=== PATIENT | female | born 1950 | race African-American/Black ===

== ENCOUNTER → 2016-12-30 | Outpatient (CLI) | payer MEDICARE ==
[2015-11-04 05:00] VITALS: BP 175/79
[~2016-12-30] MED LIST: ACET650T10 PO; AMLO5TAB2 PO; ASPI-482 PO; ATOR40TA59 PO; BACL10TA PO; CARV25TA2 PO; CHOL10003 PO; GABA-586 PO; HYDR-2666 PO; INSU100C4 SQ; INSU100I13 SQ; IOHEXOL 180 MG/ML 10 ML VIAL. ONE; ISOS60TA2 PO; LIDO30CR TP; LOSA100T6 PO; NITR0.4T6 SL; OMEG1CAP6 PO; OMEP40CA5 PO; OXYC-244 PO; PREG50CA PO; [UNRECOGNIZED DRUG - OTHER] PO; methylPREDNISolone ACETATE 40 MG/ML VIAL. ONE; methylPREDNISolone ACETATE 80 MG/ML VIAL. ONE
--- NOTE | 2016-12-31 02:25 | PAIN ---
DATE OF SERVICE: DIAGNOSES: Lumbar radiculopathy with lumbar degenerative disk disease. HISTORY OF PRESENT ILLNESS: The patient is a 66-year-old female who returns for followup status post lumbar epidural steroid injections x 3, last seen 10/31/2016. The patient did very well with these with about 75% improvement, but gradually returning now in the low back and left leg as it was previously, but not nearly at the baseline. The patient reports it as aching and dull radiating to the left leg with some burning, stinging pain as well, worse with standing and walking, worse at 8 on a scale of 10. The patient reports it is better with lying down or sleeping. She has still been doing well, only occasionally waking her from sleep, but not every night. The patient reports no new motor or sensory deficits, no new bowel or bladder incontinence or other complaints. The pain radiates to her posterior gluteus, posterior lateral thigh, lateral anterior thigh and lateral medial lower leg as well as in the medial and posterior lower leg as well with walking and standing. PHYSICAL EXAMINATION: VITAL SIGNS: The patient's blood pressure 149/90, pulse 81, respirations 18, temperature is 98.2 degrees Fahrenheit, height is 5 feet 8 inches, and weight is 215 pounds. GENERAL: The patient is awake, alert, oriented, appropriate, very pleasant demeanor. HEENT: Head shows normocephalic and atraumatic. Extraocular movements are intact and symmetrical. Oral cavity, mucous membranes are moist and pink. Dentition is intact. NECK: Shows anterior throat supple without palpable lymphadenopathy noted. Swallow reflex is symmetrical. Neck shows full rotational motion of the cervical spine without difficulty. CHEST: Shows normal on inspection. Breath sounds are clear to auscultation bilaterally. HEART: Shows S1 and S2 clear. No murmurs are auscultated. ABDOMEN: Obese, soft, nontender, and nondistended. No palpable organomegaly is noted. No rebound or guarding demonstrated. BACK: Shows spine grossly midline. Normal appearing lumbar lordotic curvature and thoracic kyphotic curvature. Lumbar paraspinous muscle shows some moderate tenderness with palpation, but only with deep palpation in the lower lumbar distribution bilaterally. It is only diffusely tender without evidence of atrophy or hypertrophy. The patient shows good rotational motion both laterally as well as extension and flexion without difficulty. No tenderness over the sacrum or sacroiliac regions. EXTREMITIES: Lower extremities showed deep tendon reflexes 1+ in the patellar and tendo calcaneus tendons. Motor exam is approximately 4 on a scale of 5 with left dorsiflexion, extension, and 5/5 with quadriceps and hamstring flexion, and 5/5 on the right leg with dorsiflexion, quadriceps and hamstring flexion. Options were discussed with the patient. At this time, the patient's old chart was reviewed and her current medication regimen is updated. Current review of systems is updated today as well. We will proceed with a lumbar epidural steroid injection today is the first in this series. Risks were again discussed including, but not limited to bleeding, infection, possibility of epidural hematoma, subsequent neurologic compromise, dural punctures, headaches, spinal cord and/or nerve damage, side effects of steroid medication and poor results regarding pain control. The patient understands and wishes to proceed. The patient will return to clinic in approximately 2 weeks for followup. She was counseled on return appointment, activity level and side effects to be aware of. DIAGNOSIS: Lumbar radiculopathy with lumbar degenerative disk disease. PROCEDURE: Lumbar epidural steroid injection in translaminar approach at the L4-L5 level using C-arm fluoroscopic guidance under sterile prep and drape, and local anesthetic. MEDICATIONS INJECTED: Depo-Medrol 120 mg plus 10 mL of preservative-free normal saline and 2 mL of Isovue for contrast. CONDITION AT DISCHARGE: Stable. The patient tolerated procedure well, had no complications. DACIA OQUENDO MD DR: VIKAS/luis JOB#: [id number] / [id number]
== END | disposition home or self-care (01) ==
LOC: PNCL 07:47
PROVIDERS: ATTEND Anesthesiology
DX: M51.16 Intervertebral disc disorders with radiculopathy, lumbar region (principal)
CPT/HCPCS: 62323; J1030; J1040

== ENCOUNTER → 2017-02-24 | Outpatient (CLI) | payer MEDICARE ==
[2015-11-04 05:00] VITALS: BP 175/79
--- NOTE | 2017-02-28 08:20 | PAIN ---
DATE OF SERVICE: ADDENDUM PREOPERATIVE DIAGNOSES: Lumbar radiculopathy and lumbar degenerative disk disease. PROCEDURE: Lumbar epidural steroid injection at the L4-L5 site using C-arm fluoroscopic guidance under sterile prep and drape using local anesthetic. MEDICATION INJECTED: 120 mg of Depo-Medrol plus 10 mL of preservative-free normal saline and 2 mL of Isovue for contrast. CONDITION AT DISCHARGE: Stable. The patient tolerated procedure well, had no complications. DACIA OQUENDO MD DR: VIKAS/ulis JOB#: [id number] / [id number]
== END | disposition home or self-care (01) ==
LOC: PNCL 07:25
PROVIDERS: ATTEND Anesthesiology
DX: M51.16 Intervertebral disc disorders with radiculopathy, lumbar region (principal)
CPT/HCPCS: 62323; J1030; J1040

== ENCOUNTER → 2017-04-24 | Outpatient (CLI) | payer MEDICARE ==
[2015-11-04 05:00] VITALS: BP 175/79
[~2017-04-24] MED LIST changes: -HYDR-2666 PO; +HYDR-2758 PO; +NITR0.4T22 SL; -NITR0.4T6 SL; -OXYC-244 PO; +OXYC-327 PO
--- NOTE | 2017-04-25 02:28 | PAIN ---
DATE OF SERVICE: 04/24/2017 DIAGNOSES: Lumbar radiculopathy with lumbar degenerative disk disease. HISTORY OF PRESENT ILLNESS: The patient is a 67-year-old female who returns for followup status post lumbar epidural steroid injections x 2, last seen 02/24/2017. The patient reports that she did fairly well with this about 80% improvement initially, now the pain is returning in the low back and left lower extremity as it was in the anterolateral thigh, medial thigh, posterior thigh and across the low back and to the lower leg medially sometimes. The patient reports it is sharp, burning, constant becoming more noticeable, awaken her from sleep when she lies on her left side. The patient reports it is worst with walking and standing. It is 10 on scale of 10, at its least is 8 on a scale 10 currently. The patient reports no new motor or sensory deficits, no new bowel or bladder incontinence or other complaints. PHYSICAL EXAMINATION: VITAL SIGNS: The patient's blood pressure is 133/74, pulse 74, respirations 18, temperature 97.5 degrees Fahrenheit, height is 5 feet 8 inches, weight is 216 pounds. GENERAL: The patient is awake, alert, oriented, appropriate, very pleasant demeanor. HEENT: Head shows normocephalic, atraumatic. Extraocular movements are intact and symmetrical. Oral cavity: Mucous membranes are moist and pink. NECK: Shows anterior throat supple. CHEST: Shows normal on inspection. Breath sounds are clear to auscultation bilaterally. HEART: Shows S1 and S2 clear. No murmurs auscultated. ABDOMEN: Soft, nontender, nondistended. BACK: Shows spine grossly in midline. Lumbar paraspinous muscle shows some moderate tenderness with palpation, but is symmetrical on inspection without radiation. No tenderness over the sacrum or sacroiliac regions. The patient shows good rotation and motion of the lumbar spine, both laterally as well as extension and flexion without difficulty. EXTREMITIES: Lower extremities showed deep tendon reflexes at 1+/4 bilaterally in the patellar and tendo calcaneus tendons. Motor exam is strong with approximately 4-5 motor strength the left ankle and 5/5 on the right. PLAN: Options were discussed with the patient. At this time, the patient's old chart was reviewed as her current medication regimen updated. Current review of systems updated today as well. We will proceed with a third in the series of lumbar epidural steroid injection with fluoroscopic guidance. Risks were again discussed including, but not limited to bleeding, infection, possibility of epidural hematoma, subsequent neurologic compromise, dural puncture, headaches, spinal cord and/or nerve damage, side effects of steroid medication and poor results regarding pain control. The patient understands and wishes to proceed. The patient will return to clinic in approximately 2 weeks for followup. She was counseled to return appointment, activity level and side effects to be aware of. DIAGNOSIS: Lumbar radiculopathy with lumbar degenerative disk disease. PROCEDURE: Lumbar epidural steroid injection in translaminar approach at the L4-L5 level using C-arm fluoroscopic guidance under sterile prep and drape using local anesthetic. Medication injected is 120 mg Depo-Medrol plus 10 mL of preservative-free normal saline and 2 mL of Isovue for contrast. CONDITION AT DISCHARGE: Stable. The patient tolerated procedure well, had no complications. DACIA OQUENDO MD DR: VIKAS/luis JOB#: [id number] / [id number]
== END | disposition home or self-care (01) ==
LOC: PNCL 07:33
PROVIDERS: ATTEND Anesthesiology
DX: M51.16 Intervertebral disc disorders with radiculopathy, lumbar region (principal); Z88.0 Allergy status to penicillin; Z88.8 Allergy status to other drugs, medicaments and biological substances
CPT/HCPCS: 62323; J1030; J1040

== ENCOUNTER → 2017-06-30 | Outpatient (CLI) | payer MEDICARE ==
[2015-11-04 05:00] VITALS: BP 175/79
--- NOTE | 2017-06-30 09:42 | PAIN ---
DATE OF SERVICE: 06/30/2017 PROGRESS NOTE FOR PAIN CLINIC DIAGNOSIS: Lumbar radiculopathy with lumbar degenerative disk disease. HISTORY OF PRESENT ILLNESS: The patient is a 67-year-old female who returns for followup, status post previous lumbar epidural steroid injection. The patient did very well with this with approximately 80% improvement overall, pain returning now. Her last injection was on April 24, first one in that series was on December 30. The patient did very well, but the pain is returning now in the low back and left lower extremity greater than right. It is an aching, dull, cramping pain. It can be sharp and becoming more constant in the left leg. The patient reports it is a 9 on a scale of 10 at all times, ____. The patient reports it wakes her up from sleep. She sleeps about 3-4 hours at a time, but has to reposition to get comfortable here lately over the past month or so. The patient reports no new motor or sensory deficits, no new bowel or bladder incontinence or other complaints. PHYSICAL EXAMINATION: VITAL SIGNS: Today, the patient's blood pressure is 137/79, pulse is 66, respirations are 18, temperature is 97.8 degrees Fahrenheit, height is 5 feet 8 inches, weight is 222 pounds. GENERAL: The patient is awake, alert, oriented, appropriate, has very pleasant demeanor. HEENT: Head shows normocephalic, atraumatic. Extraocular movements are intact and symmetrical. Oral cavity shows mucous membranes are moist and pink. Dentition is intact. NECK: Shows anterior throat supple without palpable lymphadenopathy noted. Swallow reflex is symmetrical. CHEST: Shows normal on inspection. Breath sounds are clear to auscultation bilaterally. HEART: Shows S1 and S2 clear. ABDOMEN: Obese, soft, nontender, nondistended. No palpable organomegaly is noted. No rebound or guarding demonstrated. BACK: Shows spine grossly midline. Some mild flattening of lumbar lordotic curvature and lumbar paraspinous musculature is symmetrical with palpation shows some mild tenderness with palpation bilaterally, but only diffusely without radiation. EXTREMITIES: Lower extremities show deep tendon reflexes 1+ in the patellar and tendo calcaneus tendons are equal. Motor exam is strong with approximately 4 on a scale of 5 with left dorsiflexion and extension and 5/5 on the right. PLAN: Options were discussed with the patient. The patient's old chart was reviewed as her current medication regimen and updated. Current review of systems updated today as well. We will proceed with the first in the series of lumbar epidural steroid injection with fluoroscopic guidance. Risks were again discussed including, but not limited to bleeding, infection, possibility of epidural hematoma, subsequent neurological compromise, dural puncture, headaches, spinal cord and/or nerve damage, side effects of steroid medication and poor results regarding pain control. The patient understands and wishes to proceed. The patient will return to the clinic in approximately 2 weeks for followup. She was counseled as to return appointment, activity level and side effects to be aware of. DIAGNOSIS: Lumbar radiculopathy with lumbar degenerative disk disease. PROCEDURES: Lumbar epidural steroid injection in translaminar approach at L4-L5 level using C-arm fluoroscopic guidance under sterile prep and drape using local anesthetic. MEDICATIONS INJECTED: A total of 120 mg of Depo-Medrol plus 10 mL of preservative-free normal saline and 2 mL of Isovue for contrast. Condition at discharge is stable. The patient tolerated the procedure well, had no complications. DACIA OQUENDO MD DR: VIKAS/luis JOB#: [id number] / [id number]
== END | disposition home or self-care (01) ==
LOC: PNCL 07:29
PROVIDERS: ATTEND Anesthesiology
DX: M51.16 Intervertebral disc disorders with radiculopathy, lumbar region (principal); Z88.0 Allergy status to penicillin; Z88.8 Allergy status to other drugs, medicaments and biological substances
CPT/HCPCS: 62323; J1030; J1040

== ENCOUNTER → 2017-08-25 | Outpatient (CLI) | payer MEDICARE ==
[2015-11-04 05:00] VITALS: BP 175/79
--- NOTE | 2017-08-25 08:47 | PAIN ---
DATE OF SERVICE: 08/25/2017 DIAGNOSES: Lumbar radiculopathy with lumbar degenerative disk disease. HISTORY OF PRESENT ILLNESS: The patient is a 67-year-old female who returns for followup status post lumbar epidural steroid injection x 1. The patient reports about 70% improvement for the first 3 weeks following the injections. It has been about a month now since she had this. Pain is returning now in the low back, left lower extremity as it was previously, but still very well controlled. The patient reports it as aching, sharp, cramping and constant and becoming more constant in quality. The patient reports it is a on a scale of 10 at it is worse, 8 on average, is a 6 on a scale of 10 today. The patient reports no new motor or sensory deficits, no new bowel or bladder incontinence or other complaints. The patient reports it is not awakening her from sleep. She feels much better lying down or sitting, worse with walking and standing for more than about 20-30 minutes, she starts to notice the pain. PHYSICAL EXAMINATION: VITAL SIGNS: Today, the patient's blood pressure 119/73, pulse 78, respirations 16, temperature 97.9 degrees Fahrenheit. Height is 5 feet 8 inches, weighs 222 pounds. GENERAL: The patient is awake, alert, oriented, appropriate, very pleasant demeanor. HEENT: Shows normocephalic, atraumatic. Extraocular movements are intact, symmetrical. Oral cavity, mucous membranes are moist and pink. Dentition is intact. NECK: Shows anterior throat supple without palpable lymphadenopathy noted. Swallow reflex is symmetrical. CHEST: Shows normal on inspection. Breath sounds are clear to auscultation bilaterally. HEART: Shows S1 and S2 clear. ABDOMEN: Soft, nontender, nondistended. No palpable organomegaly, no rebound or guarding demonstrated. BACK: Shows spine grossly in midline. Normal appearing thoracic kyphosis and lumbar lordotic curvature. Lumbar paraspinous muscle shows symmetrical on inspection. On palpation shows some moderate tenderness, but only diffusely and is firm bilaterally throughout the upper, middle and lower distribution of paraspinous muscles, but without atrophy or hypertrophy. The patient shows no tenderness over the sacrum or sacroiliac regions. EXTREMITIES: Lower extremities showed deep tendon reflexes at 1+ in the patellar and tendo calcaneus tendons are equal. Motor exam is approximately 4 on a scale of 5 left dorsiflexion and extension and 5/5 on the right. Peripheral pulses are 1+ posterior tibial. No peripheral edema is noted. Options were discussed with the patient. The patient's old chart was reviewed as her current medication regimen and updated. Current review of systems is updated today as well. We will proceed with a lumbar epidural steroid injection as the second in this series. Risks were again discussed including, but not limited to bleeding, infection, possibility of epidural hematoma and subsequent neurologic compromise, dural puncture, headaches, spinal cord and/or nerve damage, side effects of steroid medication and poor results regarding pain control. The patient understands and wished to proceed. The patient will return to the clinic in approximately 2 weeks for followup, was counseled on return appointment, activity level and side effects to be aware of. DIAGNOSIS: Lumbar radiculopathy with lumbar degenerative disk disease. PROCEDURE: Lumbar epidural steroid injection in translaminar approach at the L4-L5 level using C-arm fluoroscopic guidance under sterile prep and drape using local anesthetic. Medication injected is total of 120 mg of Depo-Medrol plus 10 mL preservative free normal saline and 2 mL Isovue for contrast. CONDITION AT DISCHARGE: Stable. The patient tolerated the procedure well, had no complications. DACIA OQUENDO MD DR: VIKAS/luis JOB#: [id number] / [id number]
== END | disposition home or self-care (01) ==
LOC: PNCL 07:33
PROVIDERS: ATTEND Anesthesiology
DX: M51.16 Intervertebral disc disorders with radiculopathy, lumbar region (principal); Z88.1 Allergy status to other antibiotic agents; Z88.8 Allergy status to other drugs, medicaments and biological substances
CPT/HCPCS: 62323; J1030; J1040

== ENCOUNTER → 2017-10-20 | Outpatient (CLI) | payer MEDICARE ==
[2015-11-04 05:00] VITALS: BP 175/79
[~2017-10-20] MED LIST changes: +FINA5TAB4 PO; +SPIR25TA3 PO
--- NOTE | 2017-10-20 08:28 | PAIN ---
DATE OF SERVICE: 10/20/2017 DIAGNOSES: Lumbar radiculopathy with lumbar degenerative disk disease. HISTORY OF PRESENT ILLNESS: The patient is a 67-year-old female who returns for followup status post lumbar epidural steroid injection x 2, last seen 08/25/2017. The patient did quite well, about 75% improvement until the last few weeks. The patient reports it is still helping the pain in her low back and left leg, but starting to become more noticeable. She is increasing activity with greater ease and comfort, sleeping much better at night. Reports, it does not awaken her from sleep. The patient reports pain is mainly in the low back, radiating to posterior thigh, posterior calf, posterior lateral medial thigh and into the medial lower leg on the left side. The patient reports it is sharp, alternating with stabbing, is on and off, though intensity rated a 9 on a scale of 10 at its worst, 7 on average and a 6 on a scale of 10 at its least, is a 6 today. The patient reports no new motor or sensory deficits, no new bowel or bladder incontinence or other complaints. PHYSICAL EXAMINATION: VITAL SIGNS: The patient's blood pressure 119/72, pulse 79, respirations 16, temperature 97.5 degrees Fahrenheit, height is 5 feet 8 inches, weight is 217 pounds. GENERAL: The patient is awake, alert, oriented, appropriate, very pleasant demeanor. HEENT: Head shows normocephalic, atraumatic. Extraocular movements are intact and symmetrical. Oral cavity: Mucous membranes moist and pink. Dentition is intact. NECK: Shows anterior throat supple without palpable lymphadenopathy noted. Swallow reflex is symmetrical. CHEST: Shows normal with inspection. Breath sounds are clear to auscultation bilaterally. HEART: Shows S1, S2 clear. No murmurs auscultated. ABDOMEN: Soft, nontender, nondistended. BACK: Shows spine grossly in the midline. Normal appearing thoracic kyphosis and lumbar lordotic curvature. Lumbar paraspinous muscle shows symmetrical on inspection, with palpation shows some moderate tenderness in the low lumbar distribution, but only diffusely with no radiation. The patient shows good rotational motion both laterally as well as extension and flexion. No tenderness over the sacrum or sacroiliac regions. EXTREMITIES: Lower extremities show deep tendon reflexes 1+ in the patellar and tendo calcaneus tendons. Motor exam is approximately 4 on a scale of 5 with left ankle dorsiflexion, extension and 5/5 on the right. Peripheral pulses are 1+ posterior tibia. No peripheral edema is noted bilaterally. Options were discussed with the patient. The patient's old chart was reviewed as her current medication regimen updated. Current review of systems updated today as well. We will proceed with a third in the series of lumbar epidural steroid injection today with fluoroscopic guidance. Risks were again discussed including, but not limited to bleeding, infection, possibility of epidural hematoma, subsequent neurologic compromise, dural puncture headache, spinal cord and/or nerve damage, side effects of steroid medication and poor results regarding pain control. The patient understands and wished to proceed. The patient will return to clinic in approximately 2 weeks for followup, was counseled on return appointment, activity level and side effects to be aware of. DIAGNOSIS: Lumbar radiculopathy with lumbar degenerative disk disease. PROCEDURE: Lumbar epidural steroid injection, translaminar approach at the L4-L5 level using C-arm fluoroscopic guidance under sterile prep and drape using local anesthetic. MEDICATION INJECTED: A total of 120 mg Depo-Medrol plus 10 mL of preservative-free normal saline and 2 mL of Isovue for contrast. CONDITION AT DISCHARGE: Stable. The patient tolerated the procedure well, had no complications. DACIA OQUENDO MD DR: VIKAS/luis JOB#: [id number] / [id number]
== END ==
LOC: PNCL 07:33
PROVIDERS: ATTEND Anesthesiology
DX: M51.16 Intervertebral disc disorders with radiculopathy, lumbar region (principal)
CPT/HCPCS: 62323; J1030; J1040

== ENCOUNTER → 2018-01-19 | Outpatient (CLI) | payer MEDICARE | END | disposition home or self-care (01) | LOC: PNCL 09:14 | DX: M51.16 Intervertebral disc disorders with radiculopathy, lumbar region (principal); I48.91 Unspecified atrial fibrillation; Z79.01 Long term (current) use of anticoagulants | CPT/HCPCS: G0463 ==

== ENCOUNTER → 2018-01-26 | Outpatient (CLI) | payer MEDICARE ==
[~2018-01-26] MED LIST changes: -ACET650T10 PO; -AMLO5TAB2 PO; -ASPI-482 PO; -ATOR40TA59 PO; -BACL10TA PO; -CARV25TA2 PO; -CHOL10003 PO; -FINA5TAB4 PO; -GABA-586 PO; -HYDR-2758 PO; -INSU100C4 SQ; -INSU100I13 SQ; +IOHEXOL 180 MG/ML 10 ML VIAL.; -IOHEXOL 180 MG/ML 10 ML VIAL. ONE; -ISOS60TA2 PO; -LIDO30CR TP; -LOSA100T6 PO; -NITR0.4T22 SL; -OMEG1CAP6 PO; -OMEP40CA5 PO; -OXYC-327 PO; -PREG50CA PO; -SPIR25TA3 PO; -[UNRECOGNIZED DRUG - OTHER] PO; +methylPREDNISolone ACETATE 40 MG/ML VIAL.; -methylPREDNISolone ACETATE 40 MG/ML VIAL. ONE; +methylPREDNISolone ACETATE 80 MG/ML VIAL.; -methylPREDNISolone ACETATE 80 MG/ML VIAL. ONE
== END ==
LOC: PNCL 08:47
DX: M51.16 Intervertebral disc disorders with radiculopathy, lumbar region (principal)
CPT/HCPCS: 62323; J1030; J1040; Q9965

== ENCOUNTER → 2018-03-24 | Outpatient (CLI) | payer MEDICARE ==
[~2018-03-24] MED LIST changes: +LIDOCAINE 1% PF 2 ML VIAL.
== END | disposition home or self-care (01) ==
LOC: PNCL 07:38
DX: M51.16 Intervertebral disc disorders with radiculopathy, lumbar region (principal); Z88.0 Allergy status to penicillin; Z88.8 Allergy status to other drugs, medicaments and biological substances
CPT/HCPCS: 62323; J1030; J1040; Q9965

== ENCOUNTER → 2018-05-21 | Outpatient (CLI) | payer MEDICARE | END | disposition home or self-care (01) | LOC: PNCL 07:55 | DX: M51.16 Intervertebral disc disorders with radiculopathy, lumbar region (principal); Z88.0 Allergy status to penicillin; Z88.8 Allergy status to other drugs, medicaments and biological substances; Z79.01 Long term (current) use of anticoagulants | CPT/HCPCS: 62323; J1030; J1040; Q9965 ==

== ENCOUNTER → 2018-07-30 | Outpatient (CLI) | payer MEDICARE ==
[2015-11-04 05:00] VITALS: BP 175/79
[~2018-07-30] MED LIST changes: +ACET650T10 PO; +AMLO5TAB7 PO; +APIX2.5T PO; +ASPI-482 PO; +ATOR40TA59 PO; +BACL10TA PO; +CARV25TA2 PO; +CHOL10003 PO; +FINA5TAB4 PO; +GABA-586 PO; +HYDR-2758 PO; +INSU100C4 SQ; +INSU100I13 SQ; -IOHEXOL 180 MG/ML 10 ML VIAL.; +IOHEXOL 180 MG/ML 10 ML VIAL. ONE; +ISOS60TA2 PO; +LIDO30CR TP; -LIDOCAINE 1% PF 2 ML VIAL.; +LIDOCAINE 2% PF 2ML VIAL. ONE; +LOSA100T7 PO; +NITR0.4T22 SL; +OMEG1CAP6 PO; +OMEP40CA5 PO; +OXYC-327 PO; +PREG50CA PO; +SPIR25TA5 PO; +WARF-31 PO; +[UNRECOGNIZED DRUG - OTHER] PO; -methylPREDNISolone ACETATE 40 MG/ML VIAL.; +methylPREDNISolone ACETATE 40 MG/ML VIAL. ONE; -methylPREDNISolone ACETATE 80 MG/ML VIAL.; +methylPREDNISolone ACETATE 80 MG/ML VIAL. ONE
--- NOTE | 2018-07-30 08:46 | PAIN ---
DATE OF SERVICE: 07/30/2018 PROGRESS NOTE FOR PAIN CLINIC DIAGNOSES: Lumbar radiculopathy with lumbar degenerative disk disease. HISTORY OF PRESENT ILLNESS: The patient is a 68-year-old female who returns for followup status post lumbar epidural steroid injections x 3, last seen on 05/21/2018. The patient did very well with about a 75%-80% improvement initially, now is down to about 50% improvement in her low back and bilateral lower extremities. The patient reports the pain is returning especially across the low back but did very well after the last injection, somewhat in the left leg greater than the right in the lateral anterior aspect of the thigh. The patient reports it is a 10 on a scale of 10 at its worse, 10 on average, 8 at its least and is a 10 today. The patient reports it is stabbing, aching, sharp, becoming more constant, worse with walking, standing and change in positions. She was initially doing better with walking distances greater than before and also doing household activities with greater ease and comfort, still sleeps well at night, most nights, does not usually awaken her from sleep but can occasionally. The patient reports the pain as aching, sharp, stabbing and becoming more constant. The patient reports no new motor or sensory deficits and no new bowel or bladder incontinence or other complaints. PHYSICAL EXAMINATION: VITAL SIGNS: The patient's blood pressure is 130/75, pulse 75, respirations 16, temperature 97.7 degrees Fahrenheit, height is 5 feet 8 inches and weight is 231 pounds. GENERAL: The patient is awake, alert, oriented, appropriate and very pleasant demeanor. HEENT: Head shows normocephalic and atraumatic. Extraocular movements are intact and symmetrical. Oral cavity shows moist and pink. Dentition is intact. NECK: Shows anterior throat supple without palpable lymphadenopathy noted. Swallow reflex symmetrical. CHEST: Shows normal on inspection. Breath sounds clear to auscultation bilaterally. HEART: Shows S1 and S2 clear. No murmurs auscultated. ABDOMEN: Soft, nontender and nondistended. No palpable organomegaly is noted. No rebound or guarding demonstrated. BACK: Shows spine grossly in the midline. Normal appearing thoracic and some minor flattening of lumbar lordotic curvature. Lumbar paraspinous muscle shows symmetrical on inspection, on palpation shows some mild tenderness throughout the upper, middle and lower distribution of the paraspinous muscles but only diffusely without radiation. EXTREMITIES: The patient's lower extremities show deep tendon reflexes 1+ in the patellar and tendo-calcaneus tendons are equal. Motor exam is strong with 5/5 dorsiflexion, extension on the right and 4/5 on the left with dorsiflexion, extension, quadriceps and hamstring flexion are 5/5 and equal. Peripheral pulses are 1+ posterior tibial. No peripheral edema is noted bilaterally. Options were discussed with the patient. The patient's old chart was reviewed as well as her current medication regimen updated. Current review of systems updated today as well. We will proceed with a first in the series of lumbar epidural steroid injection today with fluoroscopic guidance. Risks were again discussed including, but not limited to bleeding, infection, possibility of epidural hematoma, subsequent neurologic compromise, dural puncture, headaches, spinal cord and/or nerve damage, side effects of steroid medication and poor results regarding pain control. The patient understands and wished to proceed. The patient will return to the clinic in approximately 2 weeks for followup, was counseled as to return appointment, activity level and side effects to be aware of. DIAGNOSIS: Lumbar radiculopathy with lumbar degenerative disk disease. PROCEDURE: Lumbar epidural steroid injection, translaminar approach, L4-L5 level using C-arm fluoroscopic guidance under sterile prep and drape using local anesthetic. MEDICATION INJECTED: A total of 120 mg Depo-Medrol plus 10 mL of preservative-free normal saline and 2 mL of Isovue for contrast. CONDITION AT DISCHARGE: Stable. The patient tolerated the procedure well and had no complications. DACIA OQUENDO MD DR: VIKAS/luis JOB#: [id number] / [id number]
== END | disposition home or self-care (01) ==
LOC: PNCL 07:35
PROVIDERS: ATTEND Anesthesiology
DX: M51.16 Intervertebral disc disorders with radiculopathy, lumbar region (principal); Z88.0 Allergy status to penicillin; Z88.8 Allergy status to other drugs, medicaments and biological substances
CPT/HCPCS: 62323; J1030; J1040; J2001; Q9965

== ENCOUNTER → 2019-08-27 | Day surgery (SDC) | payer BC ==
[~2019-08-27] MED LIST changes: +AMLO5TAB10 PO; -AMLO5TAB7 PO; +FERR325T14 PO; -GABA-586 PO; +GABA300C18 PO; -HYDR-2758 PO; +HYDR-2761 PO; -IOHEXOL 180 MG/ML 10 ML VIAL. ONE; +IV RINGERS,LACTATED 1000ML 1,000 ML IV SCH; -LIDOCAINE 2% PF 2ML VIAL. ONE; +LIDOCAINE 2% PF 5 ML VIAL. ONE; +LOSA100T14 PO; -LOSA100T7 PO; +OMEP40CA45 PO; -OMEP40CA5 PO; -OXYC-327 PO; +OXYC1TAB19 PO; +PROPOFOL 40 ML IV ONE; -methylPREDNISolone ACETATE 40 MG/ML VIAL. ONE; -methylPREDNISolone ACETATE 80 MG/ML VIAL. ONE
[2019-08-27 08:09] VITALS: BP 138/63
== END ==
LOC: SURG 05:55
PROVIDERS: ATTEND Internal Medicine Gastroenterology
DX: D50.0 Iron deficiency anemia secondary to blood loss (chronic) (principal); K57.30 Diverticulosis of large intestine without perforation or abscess without bleeding; K31.7 Polyp of stomach and duodenum; K64.0 First degree hemorrhoids; E11.22 Type 2 diabetes mellitus with diabetic chronic kidney disease; I13.0 Hypertensive heart and chronic kidney disease with heart failure and stage 1 through stage 4 chronic kidney disease, or unspecified chronic kidney disease; N18.9 Chronic kidney disease, unspecified; I50.9 Heart failure, unspecified; K21.9 Gastro-esophageal reflux disease without esophagitis; F15.90 Other stimulant use, unspecified, uncomplicated; Z88.1 Allergy status to other antibiotic agents; Z88.0 Allergy status to penicillin; Z88.8 Allergy status to other drugs, medicaments and biological substances; Z95.5 Presence of coronary angioplasty implant and graft; Z79.82 Long term (current) use of aspirin; Z90.49 Acquired absence of other specified parts of digestive tract; Z95.810 Presence of automatic (implantable) cardiac defibrillator; Z90.710 Acquired absence of both cervix and uterus; Z98.890 Other specified postprocedural states; Z79.84 Long term (current) use of oral hypoglycemic drugs
CPT/HCPCS: 43235; 45378; 82962; J2001; J2704